=== PATIENT | female | born 2000 | race Asian ===

== ENCOUNTER 2018-01-01 13:05 | Inpatient (IN) | payer OTHER ==
[2018-01-01] MEDS ORDERED: Ondansetron INJ* 2 MG/ML VIAL IV ONE (13:32)
[2018-01-01] MEDS ORDERED: Ketorolac INJ* 30 MG/ML 1 ML VIAL IV ONE (13:32)
[2018-01-01] MEDS ORDERED: cefTRIAXone(*) 1 GM in NS 0.9% 50 ML* 50 ML IVPB ONE (13:36)
[2018-01-01] MEDS ORDERED: Azithromycin IV(*) 500 MG in NS 0.9% 250 ML* 250 ML IVPB ONE (13:36)
[2018-01-01] MEDS: NS 0.9% 1000 ML* 2,000 ML IV ONE (14:11)
[2018-01-01 14:17] LABS: Hematocrit 31 % (35-47); Hemoglobin 10.7 g/dl (12.0-16.0); Mean Corpuscular HGB Conc 34 g/dl (31-36); Mean Corpuscular Hemoglobin 30 pg (27-31); Mean Corpuscular Volume 88 fL (80-97); Mean Platelet Volume 7.9 um3 (7.4-10.4); Platelet Count 278 10^3/ul (150-450); Red Blood Count 3.52 10^6/ul (4.0-5.4); Red Cell Distribution Width 12 % (10.5-15); White Blood Count 20.9 10^3/ul (3.5-10.8)
[2018-01-01 14:25] LABS: INR 1.23 (0.77-1.02)
[2018-01-01 14:34] LABS: EGFR Non-African American 126.4 (>60)
[2018-01-01] MEDS ORDERED: cefTRIAXone 1000 MG SYRINGE IVPB ONCE (in NaCl) IVPB ONE ×2 (15:00)
[2018-01-01] MEDS ORDERED: CEFTRIAXONE 1000 MG IVPB ONE ×2 (15:00)
[2018-01-01] MEDS ORDERED: Iohexol 350* (CONTRAST) 500 ML MDV IV ONE (15:17)
[2018-01-01 15:20] LABS: ABS Basophils 0.1 10^3/ul (0-0.2); ABS Eosinophils 0 10^3/ul (0-0.6); ABS Lymphocytes 1.6 10^3/ul (1.0-4.8); ABS Monocytes 1.7 10^3/ul (0-0.8); ABS Neutrophils 17.5 10^3/ul (1.5-7.7); ABS Nucleated RBC 0 10^3/ul; Eosinophil % 0.1 % (0-6); Lymphocyte % 7.7 % (25-47); Nucleated Red Blood Cells % 0
--- NOTE | 2018-01-01 16:58 | RAD ---
INDICATION: Right-sided chest pain with a positive d-dimer COMPARISON: None TECHNIQUE: Axial source images were acquired following the administration of 59 mL Omnipaque [address] angiographic technique. Coronal and sagittal reconstructed images were constructed and reviewed. FINDINGS: There there are no filling defects in the pulmonary arteries to indicate acute pulmonary embolic disease. Involving most of the right lower lobe there is a mass abutting the posterior pleura measuring 6.9 x 8.9 cm in the axial plane and up to 8.3 cm in sagittal projection. There are foci of air within this mass in the center. The remaining lungs are grossly clear. The heart is normal in size. There is no evidence of pericardial effusion. There is no evidence of aortic aneurysm or dissection. There is no mediastinal, hilar, or axillary lymphadenopathy. The visualized osseous structures appear normal. Limited views of the upper abdomen show no abnormalities. IMPRESSION: 1. No CT of evidence of pulmonary embolism. 2. CT findings are consistent with partially cavitary large pneumonia involving the right lower lobe.
--- NOTE | 2018-01-01 17:49 | ED ---
Sayda Thorpe Thomas, scribed for John Gonzalez MD on 01/01/18 at 1328 . HPI Febrile Illness - HPI Summary HPI Summary: The patient is a 17 year old female sent from [facility] urgent care complaining of a cough with yellow production for the last three weeks. She is febrile. The patient also complains of body aches, posterior neck pain, headache (7/10), nausea, dizziness, ear pain, and sore throat. She has right-sided chest pain when she takes deep breaths. She complains of mild abdominal pain. The patient denies vomiting and diarrhea. - History of Current Complaint Chief Complaint: EDGeneral Time Seen by Provider: 01/01/18 13:14 Hx Obtained From: Patient Onset/Duration: Started Weeks Ago - 3, Still Present Timing: Constant Temperature: 100.4 F Current Severity: Moderate Pain Intensity: 6 Pain Scale Used: 0-10 Numeric Aggravating Factors: Nothing Alleviating Factors: Nothing Associated Signs and Symptoms: Other: - Cough, fever, body aches, posterior neck pain, headache (7/10), nausea, dizziness, ear pain, and sore throat, chest pain, mild abd pain; NEGATIVE: vomiting and diarrhea. - Allergy/Home Medications Allergies/Adverse Reactions: Allergies Allergy/AdvReac Type Severity Reaction Status Date / Time No Known Allergies Allergy Verified 01/01/18 13:11 Home Medications: Home Medications Norgestrel/Ethinyl Estrad TAB* [Ogestrel TAB 0.5/0.05*] 1 tab PO DAILY 01/01/18 [History Confirmed 01/01/18] PMH/Surg Hx/FS Hx/Imm Hx Endocrine/Hematology History: Denies: Hx Diabetes Musculoskeletal History: Denies: Hx Scoliosis Infectious Disease History: No Infectious Disease History: Denies: Traveled Outside the [place] in Last 30 Days - Family History Known Family History: Negative: Blood Disorder - Social History Alcohol Use: Weekly Alcohol Amount: 3-4 times a week Substance Use Type: Reports: None Smoking Status (MU): Never Smoked Tobacco Review of Systems Positive: Fever Positive: Sore Throat, Ear Ache Positive: Chest Pain Positive: Cough Positive: Abdominal Pain - mild, Nausea. Negative: Vomiting, Diarrhea Positive: Myalgia, Other - Neck pain Neurological: Other - Dizziness Positive: Headache All Other Systems Reviewed And Are Negative: Yes Physical Exam - Summary Physical Exam Summary: General: well-appearing, no pain distress Skin: warm, color reflects adequate perfusion, dry Head: normal Eyes: EOMI, DAMEON ENT: oral mucosa dry. Positive anterior cervical lymphadenopathy. Neck: supple, nontender Respiratory: CTA, breath sounds present Cardiovascular: Tachycardia, regular rhythm Abdomen: soft, nontender Bowel: present Musculoskeletal: normal, strength/ROM intact Neurological: normal, sensory/motor intact, A&O x3 Psychological: affect/mood appropriate Triage Information Reviewed: Yes Vital Signs On Initial Exam: Initial Vitals Temp Pulse Resp BP Pulse Ox 100.4 F 114 20 143/119 97 01/01/18 13:09 01/01/18 13:09 01/01/18 13:09 01/01/18 13:09 01/01/18 13:09 Vital Signs Reviewed: Yes Diagnostics - Vital Signs Vital Signs Temp Pulse Resp BP Pulse Ox 01/01/18 13:09 100.4 F 114 20 143/119 97 - Laboratory Lab Results: Lab Results 01/01/18 01/01/18 01/01/18 Range/Units 14:06 14:06 14:06 WBC 20.9 H (3.5-10.8) 10^3/ul RBC 3.52 L (4.0-5.4) 10^6/ul Hgb 10.7 L (12.0-16.0) g/dl Hct 31 L (35-47) % MCV 88 (80-97) fL MCH 30 (27-31) pg MCHC 34 (31-36) g/dl RDW 12 (10.5-15) % Plt Count 278 (150-450) 10^3/ul MPV 7.9 (7.4-10.4) um3 Neut % (Auto) 83.8 H (38-83) % Lymph % (Auto) 7.7 L (25-47) % [place] % (Auto) 8.1 H (0-7) % Eos % (Auto) 0.1 (0-6) % Baso % (Auto) 0.3 (0-2) % Absolute Neuts (auto) 17.5 H (1.5-7.7) 10^3/ul Absolute Lymphs (auto) 1.6 (1.0-4.8) 10^3/ul Absolute Monos (auto) 1.7 H (0-0.8) 10^3/ul Absolute Eos (auto) 0 (0-0.6) 10^3/ul Absolute Basos (auto) 0.1 (0-0.2) 10^3/ul Absolute Nucleated RBC 0 10^3/ul Nucleated RBC % 0 INR (Anticoag Therapy) 1.23 H (0.77-1.02) APTT 44.1 H (26.0-36.3) seconds D-Dimer, Quantitative 962 H (Less Than 230) ng/mL Sodium 131 L (133-145) mmol/L Potassium 2.7 L* (3.5-5.0) mmol/L Chloride 95 L (101-111) mmol/L Carbon Dioxide 24 (22-32) mmol/L Anion Gap 12 H (2-11) mmol/L BUN 4 L (6-24) mg/dL Creatinine 0.61 (0.51-0.95) mg/dL Est GFR ( Amer) 162.5 (>60) Est GFR (Non-Af Amer) 126.4 (>60) BUN/Creatinine Ratio 6.6 L (8-20) Glucose 113 H (70-100) mg/dL Lactic Acid (0.5-2.0) mmol/L Calcium 8.5 L (8.6-10.3) mg/dL Total Bilirubin 0.60 (0.2-1.0) mg/dL AST 10 L (13-39) U/L ALT 8 (7-52) U/L Alkaline Phosphatase 67 (34-104) U/L Troponin I 0.03 (<0.04) ng/mL C-Reactive Protein 360.46 H (< 5.00) mg/L Total Protein 6.6 (6.4-8.9) g/dL Albumin 3.2 (3.2-5.2) g/dL Globulin 3.4 (2-4) g/dL Albumin/Globulin Ratio 0.9 L (1-3) Beta HCG, Quant < 0.60 mIU/mL Influenza A (Rapid) (Negative) Influenza B (Rapid) (Negative) 01/01/18 01/01/18 Range/Units 14:06 14:17 WBC (3.5-10.8) 10^3/ul RBC (4.0-5.4) 10^6/ul Hgb (12.0-16.0) g/dl Hct (35-47) % MCV (80-97) fL MCH (27-31) pg MCHC (31-36) g/dl RDW (10.5-15) % Plt Count (150-450) 10^3/ul MPV (7.4-10.4) um3 Neut % (Auto) (38-83) % Lymph % (Auto) (25-47) % [place] % (Auto) (0-7) % Eos % (Auto) (0-6) % Baso % (Auto) (0-2) % Absolute Neuts (auto) (1.5-7.7) 10^3/ul Absolute Lymphs (auto) (1.0-4.8) 10^3/ul Absolute Monos (auto) (0-0.8) 10^3/ul Absolute Eos (auto) (0-0.6) 10^3/ul Absolute Basos (auto) (0-0.2) 10^3/ul Absolute Nucleated RBC 10^3/ul Nucleated RBC % INR (Anticoag Therapy) (0.77-1.02) APTT (26.0-36.3) seconds D-Dimer, Quantitative (Less Than 230) ng/mL Sodium (133-145) mmol/L Potassium (3.5-5.0) mmol/L Chloride (101-111) mmol/L Carbon Dioxide (22-32) mmol/L Anion Gap (2-11) mmol/L BUN (6-24) mg/dL Creatinine (0.51-0.95) mg/dL Est GFR ( Amer) (>60) Est GFR (Non-Af Amer) (>60) BUN/Creatinine Ratio (8-20) Glucose (70-100) mg/dL Lactic Acid 0.8 (0.5-2.0) mmol/L Calcium (8.6-10.3) mg/dL Total Bilirubin (0.2-1.0) mg/dL AST (13-39) U/L ALT (7-52) U/L Alkaline Phosphatase (34-104) U/L Troponin I (<0.04) ng/mL C-Reactive Protein (< 5.00) mg/L Total Protein (6.4-8.9) g/dL Albumin (3.2-5.2) g/dL Globulin (2-4) g/dL Albumin/Globulin Ratio (1-3) Beta HCG, Quant mIU/mL Influenza A (Rapid) Negative (Negative) Influenza B (Rapid) Negative (Negative) Result Diagrams: 01/01/18 14:06 01/01/18 14:06 Lab Statement: Any lab studies that have been ordered have been reviewed, and results considered in the medical decision making process. - CT CTA Chest CT Interpretation: No Acute Changes - IMPRESSION: 1. No CT of evidence of pulmonary embolism. 2. CT findings are consistent with partially cavitary large pneumonia involving the right lower lobe. Dr. Gonzalez has reviewed this report. CT Interpretation Completed By: Radiologist - EKG 13:52 Cardiac Rate: Tachycardia EKG Rhythm: Sinus Tachycardia - at 100 BPM EKG Interpretation: Borderline T Wave Abnormalities. No Ectopy. Course/Dx - Course Course Of Treatment: Medications reviewed. ADMIT HOSPITALIST. CRITICAL CARE TIME LESS THAN 30 MINUTES. - Diagnoses Provider Diagnoses: Pneumonia - Provider Notifications Discussed Care Of Patient With: Mimi Xiong Time Discussed With Above Provider: 17:44 Instructed by Provider To: Admit As Inpatient Discharge - Sign-Out/Discharge Documenting (check all that apply): Discharge - [facility] HOSPITALIST - Discharge Plan Condition: Stable Disposition: ADMITTED TO [facility] Referrals: No Primary Care Phys,NOPCP [Primary Care Provider] - - Billing Disposition and Condition Condition: STABLE Disposition: [facility] [place] The documentation as recorded by the Sayda peace Thomas accurately reflects the service I personally performed and the decisions made by , John Gonzalez MD.
[2018-01-01] MEDS ORDERED: Potassium Chlor TAB* 20 MEQ TAB.ER PO ONE (18:05)
[2018-01-01] MEDS ORDERED: KCL 10 MEQ/50 ML IVPREMIX* 10 MEQ/50 ML BAG ONE (18:15)
[2018-01-01] MEDS: NS 0.9% 1000 ML* 1,000 ML IV SCH (18:28)
[2018-01-01] MEDS: KCL 10 MEQ/50 ML IVPREMIX* 10 MEQ/50 ML BAG IV SCH ×2 (18:29→21:17)
[2018-01-01] MEDS ORDERED: cefTRIAXone(*) 1 GM in NS 0.9% 50 ML* 50 ML IVPB SCH (19:00)
--- NOTE | 2018-01-01 20:26 | RAD ---
INDICATION: Syncope COMPARISON: None. TECHNIQUE: Contiguous axial sections of the brain were obtained from the skull base to the vertex without contrast. FINDINGS: The ventricles, cisterns and sulci are within normal limits. The tenorio-white matter differentiation is adequately maintained and there is no sulcal effacement. No significant focal abnormality or mass effect is present. There is no evidence for intracranial hemorrhage. No significant focal osseous abnormality is present. The visualized portion of the paranasal sinuses appear clear. The mastoid air cells are well aerated bilaterally. IMPRESSION: Normal CT of the brain.
--- NOTE | 2018-01-01 21:37 | CONS ---
PULMONARY CONSULTATION REPORT: DATE OF CONSULT: 01/01/18 CONSULTATION REQUESTED BY: Hammad Leon NP REASON FOR CONSULT: Evaluation of abnormal CT chest. HISTORY OF PRESENT ILLNESS: The patient is a 17-year-old female with no significant past medical history who presents to the emergency room for evaluation of cough productive of yellow phlegm for the past 3 weeks. The patient denies fevers or chills. The patient reports sick contacts recently. The patient reports body ache, headache, neck pain. The patient also reports nausea, dizziness, ear ache and sore throat. The patient reports chest pain with deep breaths. The patient also reports vague abdominal discomfort. However, denies vomiting or diarrhea. The patient was febrile with a T-max of 100.4 in the emergency room. Further evaluation included chest x-ray and CTA of the chest. I have personally reviewed chest x-ray and CT scan of the chest. The patient noted to have large area of consolidation in the right lower lobe abutting the pleura. The patient also with foci of air within the mass, lesion. The patient also with evidence of cavitation in the mass. No significant mediastinal hilar or axillary lymphadenopathy was noted. No evidence of fillings defects were noted. The patient was admitted for possibility of pneumonia. The patient denies recent travel outside the [place]. The patient is originally from [facility], has traveled back to [facility] earlier this past year. The patient reports history of TB in family with younger brother diagnosed and treated with TB a few years ago. The patient denies recent weight loss or loss of appetite. The patient denies drug abuse. The patient is not smoker. The patient denies night sweats or prolonged fevers. The patient denies IV drug abuse. The patient denies having multiple sex partners or having exposure to HIV. The patient denies hemoptysis. MEDICATIONS: Ogestrel tablets 1 tablet daily. ALLERGIES: No known drug allergies. FAMILY HISTORY: History of TB in brother long time ago, no other illnesses. SOCIAL HISTORY: Occasional alcohol intake 3 to 4 times a week, denies smoking or drug abuse. She is a student in [place] and lives with her roommate. REVIEW OF SYSTEMS: All 14 systems reviewed and as per HPI. PHYSICAL EXAM: The patient is in bed, no apparent distress. HEENT: Pupils equal, reactive to light, mucous membranes dry. Lymphatic system, palpable anterior cervical lymphadenopathy. Neck: Supple. No accessory muscle usage. Respiratory: Clear to auscultation bilaterally. Cardiovascular: Tachycardia. Abdomen: Soft, nontender, nondistended. Bowel sounds present. Musculoskeletal : Normal range of motion. Neurologic: Alert, awake, oriented x3. No focal deficits. Vital Signs: Temperature 100.4, heart rate 96 beats per minute, respiratory rate 99 on room air, blood pressure 110/69. DIAGNOSTIC STUDIES/LAB DATA: WBC count 20.9, hemoglobin 10.7, hematocrit 31, platelet count 278 with left shift. Sodium 131, potassium 2.7, chloride 95, bicarb 24, BUN 4, creatinine 0.6, lactic acid within normal limits. Calcium slightly low at 3.5. LFTs within normal limits. CRP elevated at 360. test is negative. Influenza A and B negative. INR slightly elevated at 1.23. D-dimer at 962. CTA of the chest as described above. IMPRESSION AND RECOMMENDATIONS: 17-year-old female originally from [facility]. Last travel about a year ago with recent sick contact with large consolidating mass in right lower lobe concerning for lung abscess. Patient had cold like symptoms 3 weeks ago, might have had Influenza. Given travel to endemic country with TB in the past and family history of TB, would also need to isolate the patient and rule out active TB. Respiratory isolation, sputum AFB x3. Rocephin and Zithromax for atypical coverage recommended by ID. Might need anaerobic coverage. She drinks ETOH and has passed out 2-3 weeks ago. Also suspect connective tissue disease, will check ANTHONY and ANCA. Thank you for allowing me to participate in care of your patient. Will follow up with you. The above recommendations were discussed with Hammad Leon NP. [id number]/BRENDAN #: [id number] KERRI
[2018-01-01] MEDS ORDERED: metroNIDAZOLE IV 500 MG/100ML* 500 MG/100 ML BAG IVPB SCH (22:00)
--- NOTE | 2018-01-01 22:02 | HP ---
CC: [facility] * HISTORY AND PHYSICAL: DATE OF ADMISSION: 01/01/18 PRIMARY CARE PROVIDER: [facility]. ATTENDING PHYSICIAN WHILE IN THE HOSPITAL: Mimi Xiong DO * (report dictated by Jacklyn Leon NP). CHIEF COMPLAINT: 1. Cough. 2. Not feeling well. 3. Chills. HISTORY OF PRESENT ILLNESS: Mrs. Nelson is a 17-year-old female patient who was previously healthy. She gives no medical history, but she does have a history of 3 weeks of cough starting out 3 weeks ago. She had URI type symptoms. She had a sore throat, runny nose, feeling stuffed up. She thought she had a cold. Unfortunately, it persisted for the last 3 weeks. She has had progressive worsening shortness of breath particularly with exertion. She has not been feeling well. She has been having night sweats. She has been having chills at night particularly. No weight loss and she has not been having any hemoptysis, but she does state that she is from [facility]. She immigrated over here back when she was in elementary school, but she did go a visit [facility] in March. She came in because of the coughing today and it was noted that she had a white count of almost 21,000. In addition to this, it was noted on CT imaging that she had what appeared to be of a cavitary lesion in the right lower lobe of her lung and because of this, we were asked to evaluate for admission. PAST MEDICAL HISTORY: Denied. PAST SURGICAL HISTORY: Denied. HOME MEDICATIONS: Include control 1 tablet p.o. daily. ALLERGIES TO MEDICATIONS: Include no known drug allergies. FAMILY HISTORY: She said both her parents are healthy. There is no reports of cancers, diabetes or heart disease. SOCIAL HISTORY: She does not smoke. She does drink few times a week. She said she lives in college. She is in a college at [employer], studying qualifyor. Recent travel again to [facility] in March. She denies having multiple partners and denies having any IV drug use. REVIEW OF SYSTEMS: There is no documented fever. She admits to having chills. She denied having any significant weight change. There is no double vision. She denies having any ear discharge. She denies having any rhinorrhea. There is no sore throat, no thyroid enlargement. Denies having any chest pain with the exception when she takes a deep breath, it does hurt in the right lower lobe. She had equal diaphragmatic expansion. No nausea or vomiting. There is dyspnea particularly with exertion. No abdominal pain. No dysuria, no frequency, no seizure, no loss of consciousness, no pruritus and no skin ulcerations. Review of 14 systems completed, all others negative. PHYSICAL EXAMINATION GENERAL: At this time, Mrs. Nelson is a 17-year-old female patient. She is sitting on the ED stretcher. She appears to be well nourished and well developed. VITAL SIGNS: Blood pressure 103/60, pulse 96, respirations were 18, O2 saturation is 99% on room air, and her temperature was 100.4. HEENT: Head: Atraumatic, normocephalic. Eyes: EOMs are intact. Sclerae anicteric and not pale. Throat: Oral mucosa appears to be dry. No oropharyngeal erythema. NECK: Supple. LUNGS: Clear on the left side. There were crackles noted on the right side. She had equal diaphragmatic expansion, although crackles are mostly in the right lower base. HEART: Sounds S1 and S2. Regular rate and rhythm. No murmurs, rubs, or gallops. EXTREMITIES: Pulses were 2+ throughout. She is moving all 4 extremities with 5 /5 strength. NEUROLOGIC: She is awake, alert, oriented x3. Tongue midline. Take Out Waiter were equal. No gross focal deficits. SKIN: Intact. DIAGNOSTIC STUDIES/LAB DATA: WBC of 20.9, RBC of 3.52, hemoglobin 10.7, hematocrit of 31. The INR was 1.23, PTT of 44.1. D-dimer was 962. Her sodium was 131, potassium 2.7, chloride of 95, bicarb 24, BUN 4, creatinine 0.61, glucose 113, lactate 0.8, calcium 8.5. Total bili 0.6, AST 10, ALT 8, alk phos 67, troponin 0.03. CRP was 360. Albumin was 3.2. Beta-hCG was negative. Serology was negative for flu. She had a chest CTA, which revealed no CT evidence of pulmonary embolism. CT findings are consistent with partially cavitary large pneumonia involving the right lower lobe. She had an EKG obtained today as well showing a sinus tachycardia greater than 100. No ST elevations or T-wave inversions were noted. Old medical records were reviewed. ASSESSMENT AND PLAN: Mrs. Nelson is a 17-year-old female patient coming into the ED today with complaints of cough, fevers, chills, not feeling well. On evaluation was found to be septic with a pneumonia in the right lower lobe, possible cavitary lesion. We were asked to evaluate for admission. She will be admitted under outpatient status for: 1. Sepsis secondary to pneumonia. At this point, she did get two 2 L of fluid in the ED. Her initial lactic acid was normal. We will continue normal saline at 125 an hour. I did touch base with ID and Pulmonology. There is concern with her recent travel and in fact this looks like a cavitary lesion. I am going to check HIV. We will get AFB smears x3, one now, one in the morning and one tomorrow afternoon or evening. We will also send off one of the sputum cultures for TB, PCR. In addition to this, we will put her on Rocephin and azithromycin per the recommendations of ID. I did touch base with Dr. Lucas who will be evaluating the patient later today who may want to consider bronchoscopy. Again, we will treat with aggressive antibiotics and we will continue to follow. If she does deteriorate, I would have a lower threshold of broadened her antibiotic coverage. She appears to be stable now. She is not tachypneic. She is not tachy-cardic. Her blood pressure is stable. So, I think we can continue to follow her closely. We will be placing the patient on airborne precautions until we could definitively rule out TB. 2. Hypokalemia. Her potassium is 2.7. This is probably secondary to decreased p.o. intake. I am going to go ahead and give her IV potassium and p.o. potassium and repeat in the morning, place her on telemetry to get the potassium over 3. 3. DVT prophylaxis: She is high risk. She is on control. In addition to this, she has also had pneumonia and a series infection. I am going to put her on heparin subcu for the time being and we will continue to follow. 4. Code status: Full code. 5. Fluids, electrolytes, and nutrition. She can have a regular diet. I also discussed the care with respiratory for the AFBs. TIME SPENT: Time spent on this admission was 70 minutes, greater than half the time spent [id number] with the patient obtaining my history and physical, other half of the time spent going over the plan of care with the patient and implementing the plan of care. I did discuss the plan of care with my attending, Dr. Xiong, she is in agreement. JACKLYN LEON, CONTROLS OPERATOR [employer] [id number]/[facility] #: [id number] KERRI
[2018-01-01 22:06] LABS: Urine Appearance Clear; Urine Blood Negative (Negative); Urine Color Yellow; Urine Ketones 1+ (Negative); Urine Protein Negative (Negative); Urine Specific Gravity 1.033 (1.010-1.030); Urine Urobilinogen Negative (Negative)
[2018-01-01] MEDS ORDERED: Ondansetron INJ* 2 MG/ML VIAL IV PRN (22:10)
[2018-01-01] MEDS: guaiFENesin ER TAB 600 MG PO SCH (23:13)
[2018-01-01] MEDS: Acetaminophen TAB* 325 MG PO PRN (23:14)
[2018-01-01] MEDS: Heparin VIAL(*) 5000 UNITS/ML VIAL (FIVE THOUSAND) SUBCUT SCH (23:34)
[2018-01-02] MEDS: NS 0.9% 1000 ML* 1,000 ML IV SCH (02:23)
[2018-01-02 07:09] LABS: ABS Basophils 0.1 10^3/ul (0-0.2); ABS Eosinophils 0.1 10^3/ul (0-0.6); ABS Lymphocytes 1.9 10^3/ul (1.0-4.8); ABS Monocytes 1.1 10^3/ul (0-0.8); ABS Neutrophils 14.5 10^3/ul (1.5-7.7); ABS Nucleated RBC 0 10^3/ul; Eosinophil % 0.4 % (0-6); Hematocrit 34 % (35-47); Hemoglobin 11.7 g/dl (12.0-16.0); Lymphocyte % 10.7 % (25-47); Mean Corpuscular HGB Conc 34 g/dl (31-36); Mean Corpuscular Hemoglobin 31 pg (27-31); Mean Corpuscular Volume 89 fL (80-97); Nucleated Red Blood Cells % 0; Platelet Count 320 10^3/ul (150-450); Red Blood Count 3.85 10^6/ul (4.0-5.4); Red Cell Distribution Width 12 % (10.5-15); White Blood Count 17.7 10^3/ul (3.5-10.8)
[2018-01-02] MEDS: KCL 10 MEQ/50 ML IVPREMIX* 10 MEQ/50 ML BAG IV SCH (07:14)
[2018-01-02 07:19] LABS: INR 1.15 (0.77-1.02)
[2018-01-02] MEDS: Acetaminophen TAB* 325 MG PO PRN ×3 (07:21→21:14)
[2018-01-02] MEDS: guaiFENesin ER TAB 600 MG PO SCH ×2 (07:21→21:14)
[2018-01-02 07:22] LABS: EGFR Non-African American 139.5 (>60)
[2018-01-02] MEDS: Heparin VIAL(*) 5000 UNITS/ML VIAL (FIVE THOUSAND) SUBCUT SCH ×3 (07:29→21:14)
[2018-01-02] MEDS ORDERED: Vancomycin per Pharmacy* NOTE FOLLOW UP PRN (07:38)
[2018-01-02] MEDS ORDERED: PPD test dose* 5 TU/0.1 ML TEST (*USE PPD ORDER SET*) INTRADERM ONE (08:00)
[2018-01-02] MEDS ORDERED: Vancomycin(*) 1,500 MG in NS 0.9% 250 ML* 250 ML IVPB ONE (08:00)
[2018-01-02] MEDS ORDERED: ceFAZolin 1 GM VIAL(*) 1 GM in NS 0.9% 50 ML* 50 ML IVPB SCH (08:00)
[2018-01-02] MEDS ORDERED: Tuberculin PPD* 5 TU/DOSE/0.1 ML INTRADERM ONE (08:00)
[2018-01-02] MEDS ORDERED: metroNIDAZOLE IV 500 MG/100ML* 500 MG/100 ML BAG IVPB SCH (10:00)
--- NOTE | 2018-01-02 11:39 | CONS ---
CONSULTATION REPORT: DATE OF CONSULT: 01/02/18 REQUESTING PHYSICIAN: Hammad Leon NP CONSULTING SERVICE: Infectious Disease. REASON FOR CONSULTATION: Abnormal chest imaging and productive cough. IMPRESSION: A 17-year-old woman from [facility] with no history of positive tuberculosis testing, no history of exposure and from [place] endemic [place], admitted with 3 weeks of cough, initial severe myalgia, fever and weight loss. CT scan shows a large right lower lobe infiltrate with partially cavitary lesion , to me it looks most consistent with a lung abscess. I suspect this most likely postinfluenza pneumonia developed into a lung abscess. Sputum Gram stain shows gram-positive cocci in clusters, gram-negative coccobacilli, gram- negative bacilli, gram-positive bacilli. There are a couple of epithelials present. The differential diagnosis also includes pulmonary tuberculosis. The location of the pulmonary abnormality is a little atypical as is the sheer size and density of the infiltrate, though it could be a primary TB. RECOMMENDATIONS: 1. Stop ceftriaxone, azithromycin, Flagyl. Start vancomycin, goal trough 15 to 20; Ancef 1 g every 8 hours; continue AFB of sputum sampling, 2 more samples. I discussed the case with Hammad Leon NP, and asked that one of the specimens be sent to [facility] for PCR for tuberculosis to improve our sensitivity of the initial testing. We will follow her symptoms here and if she is improving on anti- staphylococcal coverage, then that will also give us some information. 2. Tuberculin skin test. HISTORY OF PRESENT ILLNESS: This is a 17-year-old woman from [facility] admitted with fever, chills, and cough. She was well until about 3 weeks ago. She developed the onset of sore throat, runny nose, severe diffuse myalgia, fever, inability to get out of bed for 2 to 3 days and then had a couple of days of seeming to get better followed by sudden onset of worsening which included productive cough. She also started to develop anorexia, night sweats, fevers, and chills. Those symptoms have progressed for last 2.5 weeks and now she is having rigors as well. Last night she came to the emergency room, her white count was 20,000. A CT scan was done with the findings as noted above. She was febrile to 40 degrees this morning. An acid fast smear shows no AFB, influenza PCR negative. Gram-stain, gram-positive cocci in clusters, gram- negative rods. Urine legionella and pneumococcal antigens negative. She continues to have a productive cough, malaise, headache, decreased appetite. She grew up in [facility], was last there in March. She had a negative tuberculin skin test before she started [employer]. Her brother had tuberculosis when she was a child. She does not ever remember having any positive tuberculosis testing. PAST MEDICAL HISTORY: None. PAST SURGICAL HISTORY: None. MEDICATIONS: 1. control. 2. Ceftriaxone 1 g a day. 3. Flagyl 500 mg IV every 8 hours. 4. Azithromycin 500 mg daily. 5. Tylenol. ALLERGIES: None. FAMILY HISTORY: Brother with tuberculosis as a child. Both parents are healthy. SOCIAL HISTORY: She is a [employer] student in [employer]. She is from [facility] , was last there in March. No recent sick contacts. REVIEW OF SYSTEMS: A 14-point review of systems was negative except as noted above. PHYSICAL EXAM: Vital Signs: Temperature is 39, heart rate 120, respiratory rate 20, blood pressure 130/86, oxygen saturation 96% on room air. In general, she is awake in no distress. Neurologic: She is oriented x3. Follows all commands. Answers all questions. HEENT: There is no conjunctival hemorrhage. Oropharynx without lesions. Neck: Supple without mass. Lymph Nodes: There is no inguinal, axillary, or epitrochlear lymphadenopathy. Heart is tachycardic , regular. No murmur. Lungs have decreased breath sounds at the right base without wheeze or rale. Abdomen: Soft, nontender, nondistended. There are bowel sounds present. Skin: There is no rash or splinter hemorrhages. Musculoskeletal: There is no spine tenderness to palpation, no joint synovitis. LABORATORY DATA: White blood cell count 17, hemoglobin 11.7, platelets 320, 000. Creatinine is 0.5. CRP was 350 yesterday. Urinalysis negative. Influenza PCR negative. Please see impressions and recommendations outlined above. Thank you for asking me to see Ms. Nelson in consultation. [id number]/[facility] #: [id number] [facility]ENTER[facility]
--- NOTE | 2018-01-02 14:17 | PN ---
Subjective Date of Service: 01/02/18 Interval History: Pt is feeling poorly. She states she can not take a deep breath due to a very vigorous cough. She has also been sweating. She has pain under her anterior R lower ribs. Objective Active Medications: Acetaminophen (Tylenol Tab*) 650 mg PO Q6H PRN PRN Reason: PAIN OR FEVER Last Admin: 01/02/18 07:21 Dose: 650 mg Guaifenesin (Mucinex*) 1,200 mg PO BID [facility] Last Admin: 01/02/18 07:21 Dose: 1,200 mg Heparin Sodium (Porcine) (Heparin Vial(*)) 5,000 units SUBCUT Q8HR [facility] Last Admin: 01/02/18 13:23 Dose: 5,000 units Sodium Chloride (Ns 0.9% 1000 Ml*) 1,000 mls @ 125 mls/hr IV PER RATE [facility] Stop: 01/03/18 02:14 Last Admin: 01/02/18 02:23 Dose: 125 mls/hr Cefazolin Sodium 1 gm/ Sodium (Chloride) 50 mls @ 200 mls/hr IVPB Q8H [facility] Stop: 01/02/18 15:59 Last Admin: 01/02/18 08:56 Dose: 200 mls/hr Cefazolin Sodium/Dextrose (Kefzol 1 Gm In Dextrose Duplex (*)) 1 gm in 50 mls @ 200 mls/hr IVPB 0000,0800,1600 [facility] Vancomycin HCl 1,000 mg/ (Sodium Chloride) 250 mls @ 166.667 mls/hr IVPB Q6H [facility] Ondansetron HCl (Zofran Inj*) 4 mg IV Q6H PRN PRN Reason: NAUSEA/VOMITING Pharmacy Consult (Vancomycin Per Pharmacy*) 1 note FOLLOW UP . PRN PRN Reason: PER PROTOCOL Pharmacy Profile Note (Ppd Reading Note*) 1 note .SEE ORDER .ONCE [facility] Stop: 01/05/18 08:59 Pharmacy Profile Note (Vancomycin Trough Check) 1 note FOLLOW UP 1030 ONE Stop: 01/03/18 10:31 Vital Signs - 8 hr 01/02/18 01/02/18 01/02/18 07:04 07:30 11:30 Temperature 102.9 F 98.6 F Pulse Rate 117 94 Respiratory 20 18 18 Rate Blood Pressure 131/86 100/62 (mmHg) O2 Sat by Pulse 96 98 Oximetry Oxygen Devices in Use Now: None Appearance: Young female sitting up in bed, eating strawberries, NAD Eyes: No Scleral Icterus Ears/Nose/Mouth/Throat: Mucous Membranes Moist Respiratory: Symmetrical Chest Expansion and Respiratory Effort, - - RLL crackles Cardiovascular: NL Sounds; No Murmurs; No JVD, No Edema, - - mildly tachycardic but regular Abdominal: - - BS+ soft, ND, mildly tender to palpation in the mid abdomen Extremities: No Clubbing, Cyanosis Skin: No Rash or Ulcers Neurological: Alert and Oriented x 3 Result Diagrams: 01/02/18 06:58 01/02/18 06:58 Additional Lab and Data: Lab Results 01/01/18 01/01/18 01/01/18 Range/Units 14:06 14:06 14:06 WBC 20.9 H (3.5-10.8) 10^3/ul RBC 3.52 L (4.0-5.4) 10^6/ul Hgb 10.7 L (12.0-16.0) g/dl Hct 31 L (35-47) % MCV 88 (80-97) fL MCH 30 (27-31) pg MCHC 34 (31-36) g/dl RDW 12 (10.5-15) % Plt Count 278 (150-450) 10^3/ul MPV 7.9 (7.4-10.4) um3 Neut % (Auto) 83.8 H (38-83) % Lymph % (Auto) 7.7 L (25-47) % [place] % (Auto) 8.1 H (0-7) % Eos % (Auto) 0.1 (0-6) % Baso % (Auto) 0.3 (0-2) % Absolute Neuts (auto) 17.5 H (1.5-7.7) 10^3/ul Absolute Lymphs (auto) 1.6 (1.0-4.8) 10^3/ul Absolute Monos (auto) 1.7 H (0-0.8) 10^3/ul Absolute Eos (auto) 0 (0-0.6) 10^3/ul Absolute Basos (auto) 0.1 (0-0.2) 10^3/ul Absolute Nucleated RBC 0 10^3/ul Nucleated RBC % 0 INR (Anticoag Therapy) 1.23 H (0.77-1.02) APTT 44.1 H (26.0-36.3) seconds D-Dimer, Quantitative 962 H (Less Than 230) ng/mL Sodium 131 L (133-145) mmol/L Potassium 2.7 L* (3.5-5.0) mmol/L Chloride 95 L (101-111) mmol/L Carbon Dioxide 24 (22-32) mmol/L Anion Gap 12 H (2-11) mmol/L BUN 4 L (6-24) mg/dL Creatinine 0.61 (0.51-0.95) mg/dL Est GFR ( Amer) 162.5 (>60) Est GFR (Non-Af Amer) 126.4 (>60) BUN/Creatinine Ratio 6.6 L (8-20) Glucose 113 H (70-100) mg/dL Lactic Acid (0.5-2.0) mmol/L Calcium 8.5 L (8.6-10.3) mg/dL Total Bilirubin 0.60 (0.2-1.0) mg/dL AST 10 L (13-39) U/L ALT 8 (7-52) U/L Alkaline Phosphatase 67 (34-104) U/L Troponin I 0.03 (<0.04) ng/mL C-Reactive Protein 360.46 H (< 5.00) mg/L Total Protein 6.6 (6.4-8.9) g/dL Albumin 3.2 (3.2-5.2) g/dL Globulin 3.4 (2-4) g/dL Albumin/Globulin Ratio 0.9 L (1-3) Beta HCG, Quant < 0.60 mIU/mL Influenza A (Rapid) (Negative) Influenza B (Rapid) (Negative) 01/01/18 01/01/18 Range/Units 14:06 14:17 WBC (3.5-10.8) 10^3/ul RBC (4.0-5.4) 10^6/ul Hgb (12.0-16.0) g/dl Hct (35-47) % MCV (80-97) fL MCH (27-31) pg MCHC (31-36) g/dl RDW (10.5-15) % Plt Count (150-450) 10^3/ul MPV (7.4-10.4) um3 Neut % (Auto) (38-83) % Lymph % (Auto) (25-47) % [place] % (Auto) (0-7) % Eos % (Auto) (0-6) % Baso % (Auto) (0-2) % Absolute Neuts (auto) (1.5-7.7) 10^3/ul Absolute Lymphs (auto) (1.0-4.8) 10^3/ul Absolute Monos (auto) (0-0.8) 10^3/ul Absolute Eos (auto) (0-0.6) 10^3/ul Absolute Basos (auto) (0-0.2) 10^3/ul Absolute Nucleated RBC 10^3/ul Nucleated RBC % INR (Anticoag Therapy) (0.77-1.02) APTT (26.0-36.3) seconds D-Dimer, Quantitative (Less Than 230) ng/mL Sodium (133-145) mmol/L Potassium (3.5-5.0) mmol/L Chloride (101-111) mmol/L Carbon Dioxide (22-32) mmol/L Anion Gap (2-11) mmol/L BUN (6-24) mg/dL Creatinine (0.51-0.95) mg/dL Est GFR ( Amer) (>60) Est GFR (Non-Af Amer) (>60) BUN/Creatinine Ratio (8-20) Glucose (70-100) mg/dL Lactic Acid 0.8 (0.5-2.0) mmol/L Calcium (8.6-10.3) mg/dL Total Bilirubin (0.2-1.0) mg/dL AST (13-39) U/L ALT (7-52) U/L Alkaline Phosphatase (34-104) U/L Troponin I (<0.04) ng/mL C-Reactive Protein (< 5.00) mg/L Total Protein (6.4-8.9) g/dL Albumin (3.2-5.2) g/dL Globulin (2-4) g/dL Albumin/Globulin Ratio (1-3) Beta HCG, Quant mIU/mL Influenza A (Rapid) Negative (Negative) Influenza B (Rapid) Negative (Negative) Microbiology and Other Data: Microbiology 01/02/18 09:06 Acid Fast Bacilli Smear - Final Respiratory 01/01/18 20:30 Acid Fast Bacilli Smear - Final Respiratory 01/01/18 20:30 Gram Stain - Final Sputum 01/01/18 21:40 Legionella Urinary Antigen - Final Urine Negative Legionella Antigen Streptococcus pneumoniae Ag Screen - Final Negative S. pneumo Antigen Assess/Plan/Problems-Billing Miss Nelson is a 17 yo F who has no significant PMHx who presented to the ER with c /o cough x3 weeks and was found to have likely a lung abscess. - Patient Problems (1) Lung abscess Current Visit: Yes Status: Acute Code(s): J85.2 - ABSCESS OF LUNG WITHOUT PNEUMONIA SNOMED Code(s): 63550796 Comment: I question if the patient may have developed a post influenza pneumonia that then developed into a lung abscess. Will continue to work to r/o TB. Continue cefazolin and vancomycin per Dr. Watson. Will likely need assisted IV Abx. Await sputum culture. Monitor fever curve. (2) DVT prophylaxis Current Visit: Yes Status: Acute Code(s): PCJ7331 - SNOMED Code(s): 808041457 Comment: ambulation (3) Full code status Current Visit: Yes Status: Acute Code(s): Z78.9 - OTHER SPECIFIED HEALTH STATUS SNOMED Code(s): 620522266
[2018-01-02] MEDS ORDERED: Azithromycin IV(*) 500 MG in NS 0.9% 250 ML* 250 ML IVPB SCH (15:00)
[2018-01-02] MEDS ORDERED: guaiFENesin LIQ* 100 MG/5 ML UDC PO PRN (15:52)
[2018-01-02] MEDS: ceFAZolin 1 GM in Dextrose (*) 1 GM/50 ML BAG IVPB SCH (15:53)
[2018-01-02] MEDS ORDERED: cefTRIAXone 1000 MG SYRINGE IVPB Q24H (in NaCl) IVPB SCH ×2 (16:00)
[2018-01-02] MEDS: Vancomycin(*) 1,000 MG in NS 0.9% 250 ML* 250 ML IVPB SCH ×2 (16:22→22:48)
--- NOTE | 2018-01-02 16:39 | PN ---
Progress Note - Progress Note Date of Service: 01/02/18 - Pulm f/u note Note: Pt seen and examined at bedside. Pt reports having more cough with productive sputum today, not feeling any better Active Medications Generic Name Dose Route Start Last Admin Trade Name Freq PRN Reason Stop Dose Admin Acetaminophen 650 mg 01/01/18 22:10 01/02/18 15:52 Tylenol Tab* PO 650 mg Q6H PRN Administration PAIN OR FEVER Guaifenesin 10 ml 01/02/18 15:52 01/02/18 16:04 Robitussin* PO 10 ml Q4H PRN Administration COUGH Heparin Sodium (Porcine) 5,000 units 01/01/18 22:00 01/02/18 13:23 Heparin Vial(*) SUBCUT 5,000 units Q8HR [facility] Administration Sodium Chloride 1,000 mls @ 125 mls/hr 01/01/18 18:15 01/02/18 02:23 Ns 0.9% 1000 Ml* IV 01/03/18 02:14 125 mls/hr PER RATE [facility] Administration Cefazolin Sodium/Dextrose 1 gm in 50 mls @ 200 mls/hr 01/02/18 16:00 15:53 Kefzol 1 Gm In Dextrose Duplex (*) IVPB 200 mls/hr 0000,0800,1600 [facility] Administration Vancomycin HCl 1,000 mg/ 250 mls @ 166.667 mls/hr 01/02/18 16:30 01/02/18 16: 22 Sodium Chloride IVPB 166.667 mls/hr Q6H [facility] Administration Ondansetron HCl 4 mg 01/01/18 22:10 Zofran Inj* IV Q6H PRN NAUSEA/VOMITING Pharmacy Consult 1 note 01/02/18 07:38 Vancomycin Per Pharmacy* FOLLOW UP . PRN PER PROTOCOL Pharmacy Profile Note 1 note 01/04/18 09:00 Ppd Reading Note* .SEE ORDER 01/05/18 08:59 .ONCE [facility] Pharmacy Profile Note 1 note 01/03/18 10:30 Vancomycin Trough Check FOLLOW UP 01/03/18 10:31 1030 ONE Vital Signs Temp Pulse Resp BP Pulse Ox 102.9 F 115 18 124/73 100 01/02/18 15:41 01/02/18 15:41 01/02/18 15:41 01/02/18 15:41 01/02/18 15:41 Gen: Pt in NAD HEENT: No Scleral Icterus, mucous membranes moist Respiratory: Good a/e b/l, RLL crackles Cardiovascular: S1, S2+, No JVD, mildly tachycardic Abdominal: BS+, soft, ND, mildly tender to palpation in the mid abdomen Extremities: No clubbing, cyanosis, normal ROM Skin: No Rash or Ulcers Neurological: Alert and Oriented x 3, no focal defecits Laboratory Results - last 24 hr 01/01/18 01/01/18 01/01/18 14:06 18:00 21:40 WBC RBC Hgb Hct MCV MCH MCHC RDW Plt Count MPV Neut % (Auto) Lymph % (Auto) [place] % (Auto) Eos % (Auto) Baso % (Auto) Absolute Neuts (auto) Absolute Lymphs (auto) Absolute Monos (auto) Absolute Eos (auto) Absolute Basos (auto) Absolute Nucleated RBC Nucleated RBC % INR (Anticoag Therapy) Sodium Potassium Chloride Carbon Dioxide Anion Gap BUN Creatinine Est GFR ( Amer) Est GFR (Non-Af Amer) BUN/Creatinine Ratio Glucose Lactic Acid 0.7 Calcium Urine Color Yellow Urine Appearance Clear Urine pH 6.0 Ur Specific [place] 1.033 H Urine Protein Negative Urine Ketones 1+ A Urine Blood Negative Urine Nitrate Negative Urine Bilirubin Negative Urine Urobilinogen Negative Ur Leukocyte Esterase Negative Urine Glucose Negative HIV 1&2 Antibody Nonreactive 01/02/18 01/02/18 01/02/18 06:58 06:58 06:58 WBC 17.7 H RBC 3.85 L Hgb 11.7 L Hct 34 L MCV 89 MCH 31 MCHC 34 RDW 12 Plt Count 320 MPV 8.0 Neut % (Auto) 82.1 Lymph % (Auto) 10.7 L [place] % (Auto) 6.5 Eos % (Auto) 0.4 Baso % (Auto) 0.3 Absolute Neuts (auto) 14.5 H Absolute Lymphs (auto) 1.9 Absolute Monos (auto) 1.1 H Absolute Eos (auto) 0.1 Absolute Basos (auto) 0.1 Absolute Nucleated RBC 0 Nucleated RBC % 0 INR (Anticoag Therapy) 1.15 H Sodium 134 Potassium 4.0 Chloride 102 Carbon Dioxide 20 L Anion Gap 12 H BUN 4 L Creatinine 0.56 Est GFR ( Amer) 179.4 Est GFR (Non-Af Amer) 139.5 BUN/Creatinine Ratio 7.1 L Glucose 83 Lactic Acid Calcium 8.5 L Urine Color Urine Appearance Urine pH Ur Specific [place] Urine Protein Urine Ketones Urine Blood Urine Nitrate Urine Bilirubin Urine Urobilinogen Ur Leukocyte Esterase Urine Glucose HIV 1&2 Antibody I/R: 17 y o f with no signficant PMH, from [facility] a/w 3 week history of gen malaise, SOB, chest discomfort, cough, found to have large Rt lung abscess Pt being covered for Staph and Strep for suspicion of post Influenza bacterial PNA On resp isolation to r/o TB, AFBx2 negative Continues to spike fever Leucocytosis improving PPD placed Resp isolation to be d/zahra when next AFB is negative Will f/u with rpt CXR tomorrow to evaluate for pl effusion
[2018-01-02] MEDS ORDERED: Guaifenesin/Pseudo 600/60(NF) TAB (Mucinex D) PO PRN (20:30)
[2018-01-03] MEDS: ceFAZolin 1 GM in Dextrose (*) 1 GM/50 ML BAG IVPB SCH ×4 (00:18→23:54)
[2018-01-03] MEDS: CMCS: Melatonin (NF) 3 MG TAB PO PRN ×2 (00:41→23:54)
[2018-01-03] MEDS: Acetaminophen TAB* 325 MG PO PRN (03:38)
[2018-01-03] MEDS: Vancomycin(*) 1,000 MG in NS 0.9% 250 ML* 250 ML IVPB SCH (04:23)
[2018-01-03] MEDS: Heparin VIAL(*) 5000 UNITS/ML VIAL (FIVE THOUSAND) SUBCUT SCH ×3 (05:39→21:21)
[2018-01-03 07:34] LABS: Hematocrit 30 % (35-47); Hemoglobin 10.5 g/dl (12.0-16.0); Mean Corpuscular HGB Conc 35 g/dl (31-36); Mean Corpuscular Hemoglobin 30 pg (27-31); Mean Corpuscular Volume 88 fL (80-97); Mean Platelet Volume 7.9 um3 (7.4-10.4); Platelet Count 342 10^3/ul (150-450); Red Blood Count 3.45 10^6/ul (4.0-5.4); Red Cell Distribution Width 12 % (10.5-15); White Blood Count 13.2 10^3/ul (3.5-10.8)
[2018-01-03] MEDS: guaiFENesin ER TAB 600 MG PO SCH ×2 (08:16→21:21)
--- NOTE | 2018-01-03 09:37 | PN ---
Progress Note - Progress Note Date of Service: 01/03/18 SOAP: Subjective: CC: cough HPI: 18 year old woman from [place], all recent TST negative now with 3 weeks cough, fever, sweats. Energy and appetite improved today, no rash or diarrhea. Had fever overnight but no rigors since yesterday. Still productive cough. Objective: Vital Signs Temp 36.8 C 01/03/18 07:48 Pulse 95 01/03/18 07:48 Resp 18 01/03/18 09:25 BP 98/62 01/03/18 07:48 Pulse Ox 98 01/03/18 08:00 Intake & Output 01/02/18 01/03/18 01/03/18 18:59 06:59 18:59 Intake Total 1080 600 Balance 1080 600 Intake: IVPB 600 ABX - CEFAZOLIN 50 ABX - VANCOMYCIN 500 NS (0.9%) 50 Oral 1080 0 Other: Estimated Void Medium # Bowel Movements 0 # Voids 1 Gen:awake, no distress HEENT:no thrush Heart:Regular, tachycardic; no murmur Lungs:Decr BS R base Abd:+BS NTND soft Skin: no rash Laboratory Results - last 24 hr 01/01/18 01/03/18 14:06 07:16 WBC 13.2 H RBC 3.45 L Hgb 10.5 L Hct 30 L MCV 88 MCH 30 MCHC 35 RDW 12 Plt Count 342 MPV 7.9 HIV 1&2 Antibody Nonreactive Microbiology 01/02/18 20:15 Acid Fast Bacilli Smear - Final Respiratory 01/01/18 14:10 Aerobic Blood Culture - Preliminary Blood Venous No Growth Day 1 Anaerobic Blood Culture - Preliminary No Growth Day 1 01/01/18 14:06 Aerobic Blood Culture - Preliminary Blood Venous No Growth Day 1 Anaerobic Blood Culture - Preliminary No Growth Day 1 01/02/18 09:06 Acid Fast Bacilli Smear - Final Respiratory 01/01/18 20:30 Acid Fast Bacilli Smear - Final Respiratory 01/01/18 20:30 Gram Stain - Final Sputum Assessment: 1. cough with large dense right lung infiltrate, some cavitation. Differential includes pyogenic lung abscess, TB, doubt NTM or Nocardia. AFB smear neg x3 so if TB not contagious. MTB PCR pending. Sputum Cx pending. Symptoms and WBC improving suggests pyogenic abscess. 2. fever, due to #1 3. leukocytosis, due to #1, improving Plan: 1. continue vanco goal tr 15-20 and ancef 1 gm IV Q8hrs; checked w micro they are still working on bacterial sputum culture. Discussed with Dr Marshall 35 minutes floor time >50% face to face discussing test results and abx plans
[2018-01-03] MEDS ORDERED: Vancomycin Trough Check NOTE FOLLOW UP ONE (10:30)
[2018-01-03 11:55] LABS: Vancomycin Trough 6.8 mcg/mL
[2018-01-03] MEDS ORDERED: Vancomycin 1500 MG IV - x ONCE IVPB ONE ×2 (13:00)
--- NOTE | 2018-01-03 17:32 | PN ---
Subjective Date of Service: 01/03/18 Interval History: Pt is feeling a little better today. She denies any CP. No significant SOB. Her cough has lessened some. She continues to bring up sputum. No diarrhea. Objective Active Medications: Acetaminophen (Tylenol Tab*) 650 mg PO Q6H PRN PRN Reason: PAIN OR FEVER Last Admin: 01/03/18 03:38 Dose: 650 mg Guaifenesin (Mucinex*) 1,200 mg PO BID [facility] Last Admin: 01/03/18 08:16 Dose: 1,200 mg Heparin Sodium (Porcine) (Heparin Vial(*)) 5,000 units SUBCUT Q8HR [facility] Last Admin: 01/03/18 14:37 Dose: 5,000 units Cefazolin Sodium/Dextrose (Kefzol 1 Gm In Dextrose Duplex (*)) 1 gm in 50 mls @ 200 mls/hr IVPB 0000,0800,1600 [facility] Last Admin: 01/03/18 16:49 Dose: 200 mls/hr Vancomycin HCl 1,250 mg/ (Sodium Chloride) 250 mls @ 166.667 mls/hr IVPB Q6H [facility] Melatonin (Melatonin (Nf)) 3 mg PO BEDTIME PRN; Protocol PRN Reason: Sleep Last Admin: 01/03/18 00:41 Dose: 3 mg Ondansetron HCl (Zofran Inj*) 4 mg IV Q6H PRN PRN Reason: NAUSEA/VOMITING Pharmacy Consult (Vancomycin Per Pharmacy*) 1 note FOLLOW UP . PRN PRN Reason: PER PROTOCOL Pharmacy Profile Note (Ppd Reading Note*) 1 note .SEE ORDER .ONCE [facility] Stop: 01/05/18 08:59 Pharmacy Profile Note (Vancomycin Trough Check) 1 note FOLLOW UP .1829 ONE Stop: 01/04/18 18:31 Vital Signs - 8 hr 01/03/18 16:43 Temperature 98.1 F Pulse Rate 102 Respiratory 19 Rate Blood Pressure 113/68 (mmHg) O2 Sat by Pulse 96 Oximetry Oxygen Devices in Use Now: None Appearance: Young female lying in bed, NAD Eyes: No Scleral Icterus Ears/Nose/Mouth/Throat: Mucous Membranes Moist Respiratory: Symmetrical Chest Expansion and Respiratory Effort, - - RLL crackles Cardiovascular: NL Sounds; No Murmurs; No JVD, RRR, No Edema Abdominal: NL Sounds; No Tenderness; No Distention Extremities: No Clubbing, Cyanosis Skin: No Rash or Ulcers, No Nodules or Sclerosis Neurological: Alert and Oriented x 3 Result Diagrams: 01/03/18 07:16 01/02/18 06:58 Additional Lab and Data: Lab Results 01/01/18 01/01/18 01/01/18 Range/Units 14:06 14:06 14:06 WBC 20.9 H (3.5-10.8) 10^3/ul RBC 3.52 L (4.0-5.4) 10^6/ul Hgb 10.7 L (12.0-16.0) g/dl Hct 31 L (35-47) % MCV 88 (80-97) fL MCH 30 (27-31) pg MCHC 34 (31-36) g/dl RDW 12 (10.5-15) % Plt Count 278 (150-450) 10^3/ul MPV 7.9 (7.4-10.4) um3 Neut % (Auto) 83.8 H (38-83) % Lymph % (Auto) 7.7 L (25-47) % [place] % (Auto) 8.1 H (0-7) % Eos % (Auto) 0.1 (0-6) % Baso % (Auto) 0.3 (0-2) % Absolute Neuts (auto) 17.5 H (1.5-7.7) 10^3/ul Absolute Lymphs (auto) 1.6 (1.0-4.8) 10^3/ul Absolute Monos (auto) 1.7 H (0-0.8) 10^3/ul Absolute Eos (auto) 0 (0-0.6) 10^3/ul Absolute Basos (auto) 0.1 (0-0.2) 10^3/ul Absolute Nucleated RBC 0 10^3/ul Nucleated RBC % 0 INR (Anticoag Therapy) 1.23 H (0.77-1.02) APTT 44.1 H (26.0-36.3) seconds D-Dimer, Quantitative 962 H (Less Than 230) ng/mL Sodium 131 L (133-145) mmol/L Potassium 2.7 L* (3.5-5.0) mmol/L Chloride 95 L (101-111) mmol/L Carbon Dioxide 24 (22-32) mmol/L Anion Gap 12 H (2-11) mmol/L BUN 4 L (6-24) mg/dL Creatinine 0.61 (0.51-0.95) mg/dL Est GFR ( Amer) 162.5 (>60) Est GFR (Non-Af Amer) 126.4 (>60) BUN/Creatinine Ratio 6.6 L (8-20) Glucose 113 H (70-100) mg/dL Lactic Acid (0.5-2.0) mmol/L Calcium 8.5 L (8.6-10.3) mg/dL Total Bilirubin 0.60 (0.2-1.0) mg/dL AST 10 L (13-39) U/L ALT 8 (7-52) U/L Alkaline Phosphatase 67 (34-104) U/L Troponin I 0.03 (<0.04) ng/mL C-Reactive Protein 360.46 H (< 5.00) mg/L Total Protein 6.6 (6.4-8.9) g/dL Albumin 3.2 (3.2-5.2) g/dL Globulin 3.4 (2-4) g/dL Albumin/Globulin Ratio 0.9 L (1-3) Beta HCG, Quant < 0.60 mIU/mL Influenza A (Rapid) (Negative) Influenza B (Rapid) (Negative) 01/01/18 01/01/18 Range/Units 14:06 14:17 WBC (3.5-10.8) 10^3/ul RBC (4.0-5.4) 10^6/ul Hgb (12.0-16.0) g/dl Hct (35-47) % MCV (80-97) fL MCH (27-31) pg MCHC (31-36) g/dl RDW (10.5-15) % Plt Count (150-450) 10^3/ul MPV (7.4-10.4) um3 Neut % (Auto) (38-83) % Lymph % (Auto) (25-47) % [place] % (Auto) (0-7) % Eos % (Auto) (0-6) % Baso % (Auto) (0-2) % Absolute Neuts (auto) (1.5-7.7) 10^3/ul Absolute Lymphs (auto) (1.0-4.8) 10^3/ul Absolute Monos (auto) (0-0.8) 10^3/ul Absolute Eos (auto) (0-0.6) 10^3/ul Absolute Basos (auto) (0-0.2) 10^3/ul Absolute Nucleated RBC 10^3/ul Nucleated RBC % INR (Anticoag Therapy) (0.77-1.02) APTT (26.0-36.3) seconds D-Dimer, Quantitative (Less Than 230) ng/mL Sodium (133-145) mmol/L Potassium (3.5-5.0) mmol/L Chloride (101-111) mmol/L Carbon Dioxide (22-32) mmol/L Anion Gap (2-11) mmol/L BUN (6-24) mg/dL Creatinine (0.51-0.95) mg/dL Est GFR ( Amer) (>60) Est GFR (Non-Af Amer) (>60) BUN/Creatinine Ratio (8-20) Glucose (70-100) mg/dL Lactic Acid 0.8 (0.5-2.0) mmol/L Calcium (8.6-10.3) mg/dL Total Bilirubin (0.2-1.0) mg/dL AST (13-39) U/L ALT (7-52) U/L Alkaline Phosphatase (34-104) U/L Troponin I (<0.04) ng/mL C-Reactive Protein (< 5.00) mg/L Total Protein (6.4-8.9) g/dL Albumin (3.2-5.2) g/dL Globulin (2-4) g/dL Albumin/Globulin Ratio (1-3) Beta HCG, Quant mIU/mL Influenza A (Rapid) Negative (Negative) Influenza B (Rapid) Negative (Negative) Microbiology and Other Data: Microbiology 01/02/18 09:06 Acid Fast Bacilli Smear - Final Respiratory 01/01/18 20:30 Acid Fast Bacilli Smear - Final Respiratory 01/01/18 20:30 Gram Stain - Final Sputum 01/01/18 21:40 Legionella Urinary Antigen - Final Urine Negative Legionella Antigen Streptococcus pneumoniae Ag Screen - Final Negative S. pneumo Antigen Assess/Plan/Problems-Billing Miss Nelson is a 17 yo F who has no significant PMHx who presented to the ER with c /o cough x3 weeks and was found to have likely a lung abscess. - Patient Problems (1) Lung abscess Current Visit: Yes Status: Acute Code(s): J85.2 - ABSCESS OF LUNG WITHOUT PNEUMONIA SNOMED Code(s): 13755955 Comment: The patient most likely has a lung abscess. Will continue cefazolin and vancomycin per Dr. Watson. Sputum culture only growing "normal jackie." The patient had a fever early this AM but nothing since. Will likely need hired worker IV Abx. Of note the patient was septic on admission by sepsis 2 criteria ( tachycardia, tachypnea, fever and leukocyotis). (2) DVT prophylaxis Current Visit: Yes Status: Acute Code(s): FRG8672 - SNOMED Code(s): 745645743 Comment: ambulation (3) Full code status Current Visit: Yes Status: Acute Code(s): Z78.9 - OTHER SPECIFIED HEALTH STATUS SNOMED Code(s): 433793322
[2018-01-03] MEDS: VANCOMYCIN 1250 MG IVPB SCH ×2 (18:28)
[2018-01-04] MEDS: VANCOMYCIN 1250 MG IVPB SCH ×4 (01:14→06:15)
[2018-01-04] MEDS: Heparin VIAL(*) 5000 UNITS/ML VIAL (FIVE THOUSAND) SUBCUT SCH (06:15)
[2018-01-04 06:36] LABS: ABS Basophils 0.2 10^3/ul (0-0.2); ABS Eosinophils 0.1 10^3/ul (0-0.6); ABS Lymphocytes 1.6 10^3/ul (1.0-4.8); ABS Monocytes 0.9 10^3/ul (0-0.8); ABS Neutrophils 10.6 10^3/ul (1.5-7.7); ABS Nucleated RBC 0 10^3/ul; Eosinophil % 0.9 % (0-6); Hematocrit 31 % (35-47); Hemoglobin 10.4 g/dl (12.0-16.0); Mean Corpuscular HGB Conc 34 g/dl (31-36); Mean Corpuscular Hemoglobin 30 pg (27-31); Mean Corpuscular Volume 89 fL (80-97); Mean Platelet Volume 8.6 um3 (7.4-10.4); Nucleated Red Blood Cells % 0; Platelet Count 407 10^3/ul (150-450); Red Blood Count 3.46 10^6/ul (4.0-5.4); Red Cell Distribution Width 12 % (10.5-15); White Blood Count 13.4 10^3/ul (3.5-10.8)
[2018-01-04] MEDS: ceFAZolin 1 GM in Dextrose (*) 1 GM/50 ML BAG IVPB SCH (08:38)
[2018-01-04] MEDS: guaiFENesin ER TAB 600 MG PO SCH (08:38)
[2018-01-04 08:42] VITALS: BP 107/64
[2018-01-04] MEDS ORDERED: PPD Reading 48-72 HRS NOTE SCH (09:00)
[2018-01-04] MEDS ORDERED: Vancomycin Trough Check NOTE FOLLOW UP ONE (18:30)
--- NOTE | 2018-01-05 07:29 | DS ---
CC: Dr. Watson; [facility] * DISCHARGE SUMMARY: DATE OF ADMISSION: 01/01/18 DATE OF DISCHARGE: 01/04/18 PRIMARY CARE PROVIDER: [facility]. PRINCIPAL DIAGNOSIS: Right lower lobe lung abscess. SECONDARY DIAGNOSIS: None. MEDICATIONS: 1. Tylenol 650 mg p.o. q.6 hours p.r.n. pain. 2. Linezolid 600 mg p.o. b.i.d. x30 days. 3. Ogestrel 1 tab p.o. daily. HOSPITAL COURSE: Ms. Nelson is a 17-year-old female who presented to the emergency room on 01/01/18 with complaints of cough and sputum production. She had also been complaining of chills. Her illness began approximately 3 weeks prior to admission. She was found to have likely a right lower lobe lung abscess. She was ruled out for infectious TB with 3 negative AFB smears. She was seen in consultation by Dr. Lucas from Pulmonology who agreed with ruling out TB as well as recommending sending ANTHONY and ANCA. These have come back negative. She was then seen in consultation by Dr. Watson who felt that the lung process likely represented pyogenic abscess as opposed to TB given its location and size. The patient produced a sputum; however, this only grew "normal jackie." She has been treated with vancomycin and cefazolin while in the hospital. On 01/04/18, the patient indicated that she wanted to leave against medical advice as she states her parents bought her plane to get home for spring. She states very clearly that she is willing to accept the risk of worsened infection, sepsis and even to leave the hospital against medical advice. I was able to speak with Dr. Watson on the day of discharge who recommended sending her on linezolid 600 mg p.o. twice daily. She has been instructed to go to the nearest emergency room if she suddenly becomes sicker or if she develops any concerning symptoms. Additionally, it has been recommended that she followup upon return home with [facility] and with Dr. Watson. The patient is aware that I am highly recommending that she stay in the hospital for IV antibiotics and ultimately obtain a PICC for IV antibiotics for a prolonged course. She at this time does have capacity to make the decision to leave against medical advice. Of note, the patient is mildly tachycardic and I have explained that I am concerned about this as well. At this point, the patient states that she feels well and regardless of my recommendations, she wants to leave against medical advice. PHYSICAL EXAMINATION: On the day of discharge, the patient is awake, alert and oriented sitting up in bed in acute distress. Her cardiac exam reveals a normal S1, S2 with mildly tachycardic rate. This is regular. She has no murmurs and no edema. Her breath sounds at the right base are diminished, otherwise her lungs are clear. Abdomen is soft, nontender, nondistended. She moves all 4 extremities symmetrically. FOLLOWUP CONCERNS: The patient is being discharged against medical advice today 01/04/18. ACTIVITY LEVEL: As tolerated. DIET: Regular. CONDITION ON DISCHARGE: Guarded. TIME SPENT: Forty-minutes were spent discharging this patient. [id number]/CPS #: [id number] KERRI
== END 2018-01-04 12:00 | disposition home or self-care (01) | DRG 871 ==
LOC: ED 13:05 → MED 19:55
PROVIDERS: ADMIT Internal Medicine; ATTEND Hospitalist
DX: A41.9 Sepsis, unspecified organism (principal); J85.1 Abscess of lung with pneumonia; R10.9 Unspecified abdominal pain; R00.0 Tachycardia, unspecified; E87.6 Hypokalemia; Z72.89 Other problems related to lifestyle
CPT/HCPCS: 36415; 70450; 71275; 80048; 80053; 80202; 81003; 83516; 83605; 84145; 84484; 84702; 85025; 85027; 85379; 85610; 85730; 86038; 86140; 86703; 87040; 87070; 87116; 87205; 87206; 87502; 87556; 87899; 93005; 99284; A9270-GY; J0456; J0690; J0696; J1644; J1885; J2405; J3370; J3480; J3490; Q9967

== ENCOUNTER 2018-01-08 18:17 | Inpatient (IN) | payer OTHER ==
[2018-01-08] MEDS ORDERED: NS 0.9% 1000 ML* 1,000 ML IV ONE ×2 (20:30→22:13)
--- NOTE | 2018-01-08 20:59 | RAD ---
INDICATION: Pneumonia COMPARISON: CTA chest January 01, 2018 TECHNIQUE: An AP portable view obtained at 24 hours is submitted. FINDINGS: Bones/Soft Tissues: There are no acute bony findings. Cardiomediastinal: The cardiomediastinal silhouette is normal. Lungs: There is right-sided infiltrate with cavitary consolidation. There is very Little interval change. The right lung apex and left lung are clear. Pleura: There are no pleural effusions. Other: None IMPRESSION: RIGHT LOWER LOBE INFILTRATE WITH CAVITARY CONSOLIDATION. THERE IS VERY LITTLE INTERVAL CHANGE
[2018-01-08 21:16] LABS: ABS Basophils 0 10^3/ul (0-0.2); ABS Eosinophils 0.1 10^3/ul (0-0.6); ABS Lymphocytes 2.1 10^3/ul (1.0-4.8); ABS Monocytes 0.4 10^3/ul (0-0.8); ABS Neutrophils 5.9 10^3/ul (1.5-7.7); ABS Nucleated RBC 0 10^3/ul; Eosinophil % 1.4 % (0-6); Hematocrit 30 % (35-47); Hemoglobin 10.4 g/dl (12.0-16.0); Lymphocyte % 24.7 % (25-47); Mean Corpuscular HGB Conc 34 g/dl (31-36); Mean Corpuscular Hemoglobin 30 pg (27-31); Mean Corpuscular Volume 89 fL (80-97); Nucleated Red Blood Cells % 0; Platelet Count 699 10^3/ul (150-450); Red Blood Count 3.42 10^6/ul (4.0-5.4); Red Cell Distribution Width 12 % (10.5-15); White Blood Count 8.6 10^3/ul (3.5-10.8)
[2018-01-08 21:20] LABS: INR 1.04 (0.77-1.02)
[2018-01-08 21:31] LABS: EGFR Non-African American 147.1 (>60)
[2018-01-08] MEDS ORDERED: Ondansetron INJ* 2 MG/ML VIAL IV PRN (22:01)
[2018-01-08] MEDS ORDERED: Al Hydrox/Mg Hydrox/Simet LIQ* 30 ML UDC PO PRN (22:01)
[2018-01-08] MEDS ORDERED: Senna TAB PO PRN (22:01)
[2018-01-08] MEDS ORDERED: Acetaminophen TAB* 325 MG PO PRN (22:01)
[2018-01-08] MEDS ORDERED: Docusate CAP* 100 MG PO PRN (22:01)
[2018-01-09] MEDS ORDERED: Vancomycin(*) 1,000 MG in NS 0.9% 250 ML* 250 ML IVPB ONE ×2
--- NOTE | 2018-01-09 00:11 | PN ---
Progress Note - Progress Note Date of Service: 01/09/18 Note: Elevated HCG suggestive for positive - spoke with patient. Repeated to confirm. Repeat was negative . Patient updated that she is not .
--- NOTE | 2018-01-09 02:54 | HP ---
CC: [facility] * HISTORY AND PHYSICAL: DATE OF ADMISSION: 01/08/18 TIME OF EVALUATION: 2200. PRIMARY CARE PROVIDER: [facility]. CHIEF COMPLAINT: Shortness of breath, pleuritic pain with known diagnosis of a lung abscess. HISTORY OF PRESENT ILLNESS: This is a 18-year-old female who was just admitted from the through the diagnosed with a pyogenic lung abscess, was started on IV vancomycin. The plan was to continue her on prolonged IV antibiotics. The patient wanted to leave [place]. Her mother had given her a plane flight ticket to come home, so she was discharged home. Dr. Watson recommended linezolid 600 mg p.o. b.i.d. at the time of discharge. She has been taking the linezolid. She states that she was not able to go on the plane because she was feeling too unwell. She states her shortness of breath is better overall. She is still having her pleuritic pain, which is essentially unchanged. She has been having adequate appetite. No longer having fevers. No nausea or vomiting. No abdominal pain. She has had some diarrhea. No urinary symptoms, no rash. Otherwise reviews of systems is negative. In the emergency room, the patient had labs and imaging and was referred to the hospitalist service for further evaluation. In the emergency room, she was given 1 L of normal saline. PAST MEDICAL HISTORY: Diagnosed with a right lower lobe lung abscess with negative workup including negative TB as well ANTHONY and ANCA. Her sputum culture final report was normal jackie. MEDICATIONS: 1. Linezolid 600 mg p.o. b.i.d. 2. Norgestrel-ethinyl estradiol 1 tab p.o. daily. ALLERGIES: No known drug allergies. FAMILY HISTORY: Her parents are alive and healthy. They are from [place], her mother is flying in tomorrow. SOCIAL HISTORY: The patient is from [place]. 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 She states she uses electronic cigarettes. Occasionally drinks alcohol. She denies any illicit drugs. She is sexually active. Denies using protection. REVIEW OF SYSTEMS: A 14-point review of systems mentioned in HPI, otherwise negative. PHYSICAL EXAMINATION GENERAL: No acute distress, resting comfortably. VITAL SIGNS: Temp 98.6, pulse rate 75, respiratory rate 24, oxygen saturation 97% on room air, blood pressure 97/66. HEENT: Head, normocephalic. Pupils equal and reactive, anicteric. Oropharynx : Mucous membranes are moist. NECK: Supple, no lymphadenopathy. RESPIRATORY: Diminished breath sounds and some faint rhonchi in the right lower lobe. No tachypnea or increased workup of breathing. CARDIAC: Regular rate and rhythm, soft systolic murmur heard throughout. ABDOMEN: Soft, nondistended. Some mild tenderness in the left lower quadrant. EXTREMITIES: No clubbing, cyanosis, or edema. +2 DPs. NEUROLOGIC: Alert and oriented x3. No focal neurologic deficits. DERM: No lesions or rashes. LABORATORY DATA: White count 8.6, hemoglobin 10.4, hematocrit 30, platelets 699. INR is 1.04, sodium 137, potassium 3.7, chloride 101, bicarb 28, BUN 8, creatinine 0.53, glucose 114. AST is 48, ALT is 96, CRP is 89. Urinalysis shows specific gravity of 1.033. RADIOGRAPHIC DATA: Chest x-ray: Right lower lobe infiltrate with cavitary consolidation. There is very little interval change. EKG shows normal sinus rhythm. ASSESSMENT AND PLAN: This is a 18-year-old female with recent diagnosis of a lung abscess who left A on the , sent home on linezolid, came back for concern that she needs IV antibiotics. Right lower lobe lung abscess: Assessment: The patient's blood work shows clinical improvement. Symptomatically, she appears overall improving. The chest x- ray shows minimal interval change. This is not unusual in the short duration. I suspect that the linezolid is working; however, we have no Infectious Disease coverage this evening to discuss discharge home with ID followup as an outpatient. Plan: We will admit her for observation with IV fluids. We will place her on IV vancomycin and place an ID consult for further recommendation regarding IV versus p.o. management. The patient had HIV test and a thorough workup on her prior admission, this had all been unremarkable. Consult ID. Elevated LFTs New since prior admission. Could be related to Linezolid. As above, hold linezolid and continue vancomycin. Repeat labs in AM CHRONIC MEDICAL PROBLEMS: 1. The patient is on control, we will resume that. 2. FEN: Placed her on IV fluids and regular diet. 3. DVT prophylaxis: The patient's scores 0, we will encourage ambulation. 4. Code status: Full code. PATIENT TIME: Greater than 45 minutes were spent doing history and physical, more than half time spent in direct patient contact. [id number]/CPS #: [id number] MTDD
[2018-01-09] MEDS ORDERED: Vancomycin per Pharmacy* NOTE FOLLOW UP PRN (04:40)
--- NOTE | 2018-01-09 05:04 | ED ---
[facility] Tecj[facility] scribchaparro for Shaun Hernández MD on 01/08/18 at 2027 . HPI Cardiac - HPI Summary HPI Summary: This patient is a 18 year old presenting to [facility] with a chief complaint of cough since approx. 5 days ago. Patient was seen in the ED and was admitted for lung abscess and pneumonia. Patient left AMA because she wished to fly home, but states that she was not in the condition to fly home. Patient states that she is feeling a little better currently, but whenever she breathes in, she still feels pain in her lungs. The pain is rated 6/10 in severity. Symptoms aggravated by nothing. Symptoms alleviated by nothing. Patient additionally reports fever, chills, decreased appetite. Patient denies vomiting - History of Current Complaint Chief Complaint: EDGeneral Stated Complaint: COUGH/FEVER Time Seen by Provider: 01/08/18 20:08 Hx Obtained From: Patient Onset/Duration: Started Days Ago, Still Present Timing: Constant Current Severity: Moderate Pain Intensity: 6 Pain Scale Used: 0-10 Numeric Chest Pain Location: Diffuse Aggravating Factor(s): Nothing Alleviating Factor(s): Nothing Associated Signs and Symptoms: Positive: Negative - vomiting, Other: - fever, chills, decreased appetite - Additional Pertinent History Primary Care Physician: [id number] - Allergy/Home Medications Allergies/Adverse Reactions: Allergies Allergy/AdvReac Type Severity Reaction Status Date / Time No Known Allergies Allergy Verified 01/08/18 19:58 PMH/Surg Hx/FS Hx/Imm Hx Previously Healthy: Yes Endocrine/Hematology History: Denies: Hx Diabetes Cardiovascular History: Denies: Hx Hypertension Respiratory History: Reports: Hx Asthma History: Reports: Other Problems/Disorders - one UTI, 4 years ago Denies: Hx Renal Disease Musculoskeletal History: Denies: Hx Scoliosis Sensory History: Reports: Hx Contacts or Glasses Denies: Hx Hearing Aid Opthamlomology History: Reports: Hx Contacts or Glasses EENT History: Denies: Hx Deafness Infectious Disease History: No Infectious Disease History: Denies: Traveled Outside the [place] in Last 30 Days - Family History Known Family History: Negative: Blood Disorder - Social History Occupation: Student Alcohol Use: Weekly Alcohol Amount: 3-4 times a week Hx Substance Use: No Substance Use Type: Reports: None Hx Tobacco Use: No Smoking Status (MU): Never Smoked Tobacco Review of Systems Positive: Fever, Chills, Other - decreased appetite Positive: Chest Pain Positive: Cough Negative: Vomiting All Other Systems Reviewed And Are Negative: Yes Physical Exam - Summary Physical Exam Summary: VITAL SIGNS: Reviewed. GENERAL: Patient is a well-developed and nourished (MALE OR FEMALE) who is lying comfortable in the stretcher. Patient is not in any acute respiratory distress. HEAD AND FACE: No signs of trauma. No ecchymosis, hematomas or skull depressions. No sinus tenderness. EYES: PERRLA, EOMI x 2, No injected conjunctiva, no nystagmus. EARS: Hearing grossly intact. Ear canals and tympanic membranes are within normal limits. MOUTH: Oropharynx within normal limits. NECK: Supple, trachea is midline, no adenopathy, no JVD, no carotid bruit, no c- spine tenderness, neck with full ROM. CHEST: Symmetric, no tenderness at palpation LUNGS: Decreased breath sounds bilaterally. CVS: Regular rate and rhythm, S1 and S2 present, no murmurs or gallops appreciated. ABDOMEN: Soft, non-tender. No signs of distention. No rebound no guarding, and no masses palpated. Bowel sounds are normal. EXTREMITIES: FROM in all major joints, no edema, no cyanosis or clubbing. NEURO: Alert and oriented x 3. No acute neurological deficits. Speech is normal and follows commands. SKIN: Dry and warm Triage Information Reviewed: Yes Vital Signs On Initial Exam: Initial Vitals Temp Pulse Resp BP Pulse Ox 98.6 F 94 24 128/88 96 01/08/18 18:20 01/08/18 18:20 01/08/18 18:20 01/08/18 18:20 01/08/18 18:20 Vital Signs Reviewed: Yes Diagnostics - Vital Signs Vital Signs Temp Pulse Resp BP Pulse Ox 01/08/18 18:20 98.6 F 94 24 128/88 96 - Laboratory Result Diagrams: 01/08/18 20:55 01/08/18 20:55 Lab Statement: Any lab studies that have been ordered have been reviewed, and results considered in the medical decision making process. - Radiology CXR Xray Interpretation: Positive (See Comments) - CXR reveals, per radiologist, IMPRESSION: RIGHT LOWER LOBE INFILTRATE WITH CAVITARY CONSOLIDATION. THERE IS VERY LITTLE INTERVAL CHANGE. ED physician has reviewed this radiology report. Radiology Interpretation Completed By: Radiologist - EKG 2036 Cardiac Rate: NL EKG Rhythm: Sinus Rhythm - 70 BPM EKG Interpretation: NSR (70 BPM), Normal axis. Normal interval. No ischemic changes. Disposition - Course Course Of Treatment: This patient is a 18 year old presenting to [facility] with a chief complaint of cough since approx. 5 days ago. Patient was seen in the ED and was admitted for lung abscess and pneumonia. Patient left AMA because she wished to fly home, but states that she was not in the condition to fly home. An EKG, taken 2036, reveals NSR (70 BPM), Normal axis. Normal interval. No ischemic changes. CXR reveals, per radiologist, IMPRESSION: RIGHT LOWER LOBE INFILTRATE WITH CAVITARY CONSOLIDATION. THERE IS VERY LITTLE INTERVAL CHANGE. ED physician has reviewed this radiology report. Bloodwork Obtained. Urinalysis Obtained. We discussed patient care with Dr. Norman (Hospitalist) at 2030 and they agreed to admit the patient. Patient will be admitted with a dx of lung abscess. The patient is agreeable with this plan. - Diagnoses Provider Diagnoses: Lung abscess - Physician Notifications Discussed Care Of Patient With: Debby Norman - Hospitalist Time Discussed With Above Provider: 09:31 Instructed by Provider To: Admit As Inpatient Discharge - Sign-Out/Discharge Documenting (check all that apply): Discharge - ADMITTED - Discharge Plan Condition: Stable Disposition: ADMITTED TO [facility] Referrals: No Primary Care Phys,NOPCP [Primary Care Provider] - The documentation as recorded by the [facility] Tecjoon accurately reflects the service I personally performed and the decisions made by , Shaun Hernández MD.
[2018-01-09] MEDS: Vancomycin(*) 1,250 MG in NS 0.9% 250 ML* 250 ML IVPB SCH ×3 (06:24→19:47)
[2018-01-09 06:44] LABS: EGFR Non-African American 173.2 (>60)
[2018-01-09] MEDS: Norgestrel/Ethinyl Estrad TAB* 0.5 MG/0.05 MG PO SCH ×2 (08:27→12:00)
[2018-01-09] MEDS ORDERED: Prenatal Vitamin TAB PO SCH (09:00)
[2018-01-09] MEDS ORDERED: Vancomycin Trough Check NOTE FOLLOW UP ONE (17:30)
--- NOTE | 2018-01-09 17:38 | PN ---
Subjective Date of Service: 01/09/18 Interval History: HOSPITALIST PROGRESS NOTE Patient seen and examined at bedside. She feels better today, with less cough. Pleuritic pain is still present but less intense. Family History: Unchanged from Admission Social History: Unchanged from Admission Past Medical History: Unchanged from Admission Objective Active Medications: Acetaminophen (Tylenol Tab*) 650 mg PO Q4H PRN PRN Reason: FEVER/PAIN Al Hydrox/Mg Hydrox/Simethicone (Maalox Plus*) 30 ml PO Q6H PRN PRN Reason: INDIGESTION Docusate Sodium (Colace Cap*) 100 mg PO BID PRN PRN Reason: CONSTIPATION Ethinyl Estradiol/Norgestrel (Ogestrel Tab 0.5/0.05*) 1 tab PO DAILY [facility] Last Admin: 01/09/18 12:00 Dose: Not Given Vancomycin HCl 1,250 mg/ (Sodium Chloride) 250 mls @ 166.667 mls/hr IVPB Q6H [facility] Last Admin: 01/09/18 11:56 Dose: 166.667 mls/hr Ondansetron HCl (Zofran Inj*) 4 mg IV Q4H PRN PRN Reason: NAUSEA/VOMITING Pharmacy Consult (Vancomycin Per Pharmacy*) 1 note FOLLOW UP . PRN PRN Reason: PER PROTOCOL Senna (Senokot Tab*) 1 tab PO BID PRN PRN Reason: CONSTIPATION Selected Entries 01/09/18 11:55 Temperature 98.6 F Pulse Rate 84 Respiratory 18 Rate Blood Pressure 110/64 (mmHg) O2 Sat by Pulse 96 Oximetry Oxygen Devices in Use Now: None Appearance: Young lady lying in bed in [facility]. Eyes: No Scleral Icterus Ears/Nose/Mouth/Throat: Mucous Membranes Moist Neck: Trachea Midline Respiratory: Symmetrical Chest Expansion and Respiratory Effort, - - BS+ bilaterally, rhonchi on the right Cardiovascular: RRR - Normal S1 and S2 Neurological: Alert and Oriented x 3 Result Diagrams: 01/08/18 20:55 01/09/18 05:49 Assess/Plan/Problems-Billing Assessment: Ms. Nelson is a 18yo F with recent admission for RLL abscess, left AMA, and returns with worsening symptoms. - Patient Problems (1) Lung abscess Comment: - Continue Vancomycin for now. Suspect her LFT elevation is secondary to Linezolide. - ID consult requested - Dr. Magana looking in to options for terminal operator antibiotics as outpatient. (2) DVT prophylaxis Comment: - Encourage ambulation (3) Full code status Status and Disposition: Change to in patient for treatment of lung abscess.
--- NOTE | 2018-01-09 22:14 | CONS ---
CONSULTATION REPORT: DATE OF CONSULT: 01/09/18 REQUESTING PHYSICIAN: Dr. Norman CONSULTING SERVICE: Infectious Disease. REASON FOR CONSULT: Lung abscess. IMPRESSION: 1. Recent admission with cough, fever, chest pain, malaise, found to have a right middle lobe lung abscess on a chest CT. She was here on vancomycin and ceftriaxone, left against medical advice, was discharged on linezolid, comes back now because she and her mom decided they wanted her to have IV antibiotics. She feels much better. Her only remaining symptom is right-sided chest pain, which is worse with a deep breath. Her white count is down to 8. Her CRP is down to 90 from 360 on initial presentation. Chest x-ray is stable. My preferences that she have IV antibiotics for at least another 2 weeks before switching to antibiotic pills given the sheer size of this abscess. She is willing to have IV, but unwilling to go home with a PICC line. Her options include trying to get approval for dalbavancin, which we will try now, could use a combination of that and Levaquin as an outpatient. It would prevent a need for a PICC line, but would provide IV coverage. 2. Transaminitis due to linezolid. It is improving since she stopped it, was asymptomatic, but I prefer not to retry linezolid or tedizolid because of that. HISTORY OF PRESENT ILLNESS: This is a 18-year-old woman, recent admission for lung abscess who left last after few days of IV antibiotics with some improvement. She left on linezolid, is back now with her mom, interested in IV antibiotics. She was admitted overnight. CRP is improved. Her energy, appetite, and cough are all better. Fevers gone. The only remaining symptom is right-sided pleuritic chest pain. ALT was 96. When she left here it was 8, down to 72 today since stopping the linezolid. She refuses a PICC line as she cannot bear the thought of the catheter in her arm. Her mom agrees with that. PAST MEDICAL HISTORY: None. ALLERGIES: No known drug allergies. MEDICATIONS: 1. Tylenol. 2. Docusate. 3. control pills. 4. Senna. 5. Vancomycin 1250 mg every 6 hours. 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 No history of TB exposure other than a brother with a latent tuberculosis. She had a negative tuberculin skin test last admission here. FAMILY HISTORY: No tuberculosis. Parents are both healthy. REVIEW OF SYSTEMS: A 14-point review of systems all negative except as noted above. PHYSICAL EXAM: Vital Signs: Temperature 37, heart rate 84, respiratory rate 18 , blood pressure 110/64, oxygen saturation 96% on room air. In general, she is awake, not in distress. Neurologic: She is oriented x3. Follows all commands. HEENT: There is no conjunctival hemorrhage. Oropharynx is without lesions. Neck is supple without mass. Lymph Nodes: There is no inguinal, axillary or epitrochlear lymphadenopathy. Heart: Regular rate and rhythm without murmurs, rubs or gallops. Pulmonary: There are decreased breath sounds in the right mid lung arriola with egophony without wheezes or rales. Abdomen: Soft, nontender, nondistended. There are bowel sounds present. Skin : There are no rashes or splinter hemorrhages. Musculoskeletal: There is no spine tenderness to palpation. DIAGNOSTIC STUDIES/LAB DATA: Creatinine 0.4, AST 28, ALT 72, white blood cell count 8, hemoglobin 10, and platelets 699. IMPRESSION: Please see impression and recommendations as outlined above, which I have discussed with Dr. Patel. TIME SEEN: 60 minutes were spent [id number] with the patient and her mother, greater than 50% in discussion regarding antibiotic plans after she leaves the hospital. [id number]/CPS #: [id number] MTDD
[2018-01-10] MEDS: Vancomycin(*) 1,250 MG in NS 0.9% 250 ML* 250 ML IVPB SCH ×3 (01:25→11:38)
[2018-01-10] MEDS ORDERED: GuaiFENesin DM* 5 ML UDC PO PRN (03:11)
[2018-01-10] MEDS ORDERED: guaiFENesin LIQ* 100 MG/5 ML UDC ONE (03:14)
[2018-01-10] MEDS: Norgestrel/Ethinyl Estrad TAB* 0.5 MG/0.05 MG PO SCH (07:19)
--- NOTE | 2018-01-10 09:14 | PN ---
Progress Note - Progress Note Date of Service: 01/10/18 SOAP: Subjective: CC: lung abscess HPI: 18 year old woman with right lung abscess, on vancomycin and tolerating it well. She had cough overnight, pleuritic right chest pain. No fever, rash, or diarrhea. Objective: Vital Signs Temp 36.6 C 01/10/18 07:50 Pulse 65 01/10/18 07:50 Resp 16 01/10/18 07:50 BP 109/69 01/10/18 07:50 Pulse Ox 99 01/10/18 07:50 Intake & Output 01/09/18 01/10/18 01/10/18 18:59 06:59 18:59 Intake Total 120 650 Balance 120 650 Intake: IV Fluids 50 NS (0.9%) 50 IVPB 600 ABX - VANCOMYCIN 600 Oral 120 0 Other: Estimated Void Medium # Voids 2 2 Gen:awake, no distress HEENT:PERRL, MMM Heart:RRR no murmur Lungs:decr BS R lung Abd:+BS NTND soft Skin: no rash LN: no palpable LN Laboratory Results - last 24 hr 01/09/18 18:29 Vancomycin Trough 11.4 Assessment: 1. Right lung abscess; likely Staph or Strep; improving Plan: 1. continue vancomycin here; PA for dalbavancin 1500 mg x1 as outpt along with levaquin 500 mg daily 2. FU Chest xray 1 month 25 minutes face to face time >50% discussing antibiotic plans with patient and her mom
[2018-01-10 15:23] VITALS: BP 110/80
--- NOTE | 2018-01-11 11:25 | DS ---
CC: [facility]; Dr. Watson DISCHARGE SUMMARY: DATE OF ADMISSION: 01/08/18 DATE OF DISCHARGE: 01/10/18 INFECTIOUS DISEASE SPECIALIST: Dr. Watson. DISCHARGE DIAGNOSIS: Right lower lobe lung abscess. MEDICATION LIST: 1. Norgestrel-ethinyl estradiol 1 tablet p.o. daily. 2. Dalbavancin 1500 mg IV x1 dose. HOSPITAL COURSE: Ms. Nelson is a 18-year-old female that was admitted to [facility] from 01/01/18 through 12/08 06/26, diagnosed with a pyogenic lung abscess. The patient left AMA during that admission. She was d ischarged on linezolid 600 mg p.o. b.i.d. and although she has been taking the antibiotic, she was no t feeling well. She has shortness of breath and pleuritic pain, so she returned to the emergency [facility] and was admitted for further treatment. Chest x-ray showed a right lower lobe infiltrate with cavi tary consolidation with very little interval change. The patient was seen in consultation by Infecti ous Disease (Dr. Watson) who offered the patient the option of a PICC line to continue treatment wi th vancomycin, but the patient declined that option. Dr. Watson felt that the patient had transami nitis due to linezolid, so he decided to stop it. He recommended treatment with dalbavancin with a c ombination of that with Levaquin as an outpatient. The patient is being discharged home today and she has her antibiotic infusion scheduled for 01/11/18 at 12:20 p.m. at the infusion center. She will continue to follow up with Dr. Watson as davis morrow. DIET: Regular diet. ACTIVITIES: As tolerated. DISPOSITION: To home. STATUS IN THE HOSPITAL: Inpatient. Please keep in mind that this is a summarized version of this patient's hospital stay. If you need more information, please feel free to call me at [phone] or please obtain the full edical records. TIME SPENT: Approximately 45 minutes was spent to complete this discharge. [id number]/[facility] #: [id number]
== END 2018-01-10 16:35 | disposition home or self-care (01) | DRG 179 ==
LOC: ED 18:17 → MED 22:01 → OBSVTOIN 01-09 16:24
PROVIDERS: ADMIT Pediatrics; ATTEND Internal Medicine
DX: J85.2 Abscess of lung without pneumonia (principal); R19.7 Diarrhea, unspecified; F17.290 Nicotine dependence, other tobacco product, uncomplicated; J45.909 Unspecified asthma, uncomplicated; R74.0 Nonspecific elevation of levels of transaminase and lactic acid dehydrogenase [LDH]; T36.8X5A Adverse effect of other systemic antibiotics, initial encounter; Y92.9 Unspecified place or not applicable; Z72.89 Other problems related to lifestyle
CPT/HCPCS: 36415; 71045; 80053; 80202; 83735; 84702; 85025; 85610; 85730; 86140; 93005; 99282; A9270-GY; G0378; J3370

== ENCOUNTER 2018-07-03 00:11 | Emergency (ER) | payer OTHER ==
[2018-07-03] MEDS ORDERED: Famotidine TAB* 20 MG PO ONE (01:49)
[2018-07-03] MEDS ORDERED: predniSONE TAB* 20 MG PO ONE (01:50)
[2018-07-03] MEDS ORDERED: hydrOXYzine HCL TAB* 25 MG PO ONE (01:51)
--- NOTE | 2018-07-03 02:12 | ED ---
Allergic Reaction/Systemic - HPI Summary HPI Summary: This patient is a 18 year old F presenting to [facility] accompanied by another female with a chief complaint of diffuse hives that began 2 days ago but are worse now. The patient rates the pain 0/10 in severity. Symptoms alleviated by Benadryl, pt took 25mg at 2300. Patient reports itching and the feeling of a scratchy throat. Patient denies SOB and trouble breathing. - History of Current Complaint Chief Complaint: EDAllergicReaction Time Seen by Provider: 07/03/18 01:47 Hx Obtained From: Patient Onset/Duration: Started days ago, Still Present, Worse Since Timing: Constant Severity Initially: Mild Severity Currently: Moderate Pain Intensity: 0 Pain Scale Used: 0-10 Numeric Location: Diffuse Character: Hives Alleviating Factor(s): Antihistamines Associated Signs And Symptoms: Negative: Difficulty Breathing, Vomiting - Allergies/Home Medications Allergies/Adverse Reactions: Allergies Allergy/AdvReac Type Severity Reaction Status Date / Time No Known Allergies Allergy Verified 07/03/18 02:08 PMH/Surg Hx/FS Hx/Imm Hx Endocrine/Hematology History: Denies: Hx Diabetes, Hx Anemia, Hx Unexplained Bleeding Cardiovascular History: Denies: Hx Cardiomegaly, Hx Congestive Heart Failure, Hx Hypertension Respiratory History: Reports: Hx Asthma Denies: Hx Chronic Obstructive Pulmonary Disease (COPD), Hx Cystic Fibrosis, Hx Lung Cancer, Hx Pleural Effusion History: Reports: Other Problems/Disorders - one UTI, 4 years ago Denies: Hx Renal Disease Musculoskeletal History: Denies: Hx Scoliosis Sensory History: Reports: Hx Contacts or Glasses Denies: Hx Deafness, Hx Hearing Aid Opthamlomology History: Reports: Hx Contacts or Glasses - Immunization History Immunizations Up to Date: Yes Infectious Disease History: No Infectious Disease History: Denies: Traveled Outside the [place] in Last 30 Days - Family History Known Family History: Negative: Respiratory Disease, Blood Disorder - Social History Occupation: Student Lives: Dormitory/Roommates Alcohol Use: Weekly Alcohol Amount: 3-4 times a week Hx Substance Use: No Substance Use Type: Reports: None Hx Tobacco Use: Yes Smoking Status (MU): Current Some Day Smoker Review of Systems Negative: Fever Negative: Shortness Of Breath Negative: Vomiting Positive: Other - hives All Other Systems Reviewed And Are Negative: Yes Physical Exam - Summary Physical Exam Summary: VITAL SIGNS: Reviewed. GENERAL: Patient is a well-developed and nourished female who is lying comfortable in the stretcher. Patient is not in any acute respiratory distress. HEAD AND FACE: No signs of trauma. No ecchymosis, hematomas or skull depressions. No sinus tenderness. EYES: PERRLA, EOMI x 2, No injected conjunctiva, no nystagmus. EARS: Hearing grossly intact. Ear canals and tympanic membranes are within normal limits. MOUTH: Oropharynx within normal limits. NECK: Supple, trachea is midline, no adenopathy, no JVD, no carotid bruit, no c- spine tenderness, neck with full ROM. CHEST: Symmetric, no tenderness at palpation LUNGS: Clear to auscultation bilaterally. No wheezing or crackles. CVS: Regular rate and rhythm, S1 and S2 present, no murmurs or gallops appreciated. ABDOMEN: Soft, non-tender. No signs of distention. No rebound no guarding, and no masses palpated. Bowel sounds are normal. EXTREMITIES: FROM in all major joints, no edema, no cyanosis or clubbing. NEURO: Alert and oriented x 3. No acute neurological deficits. Speech is normal and follows commands. SKIN: Diffuse macular popular rash that itches Triage Information Reviewed: Yes Vital Signs On Initial Exam: Initial Vitals Temp Pulse Resp BP Pulse Ox 99.1 F 79 15 125/72 98 07/03/18 00:18 07/03/18 00:18 07/03/18 00:18 07/03/18 00:18 07/03/18 00:18 Vital Signs Reviewed: Yes Diagnostics - Vital Signs Vital Signs Temp Pulse Resp BP Pulse Ox 07/03/18 00:18 99.1 F 79 15 125/72 98 - Laboratory Lab Statement: Any lab studies that have been ordered have been reviewed, and results considered in the medical decision making process. Allergic Reaction Course/Dx - Course Assessment/Plan: This patient is a 18 year old F presenting to [facility] accompanied by another female with a chief complaint of diffuse hives that began 2 days ago but are worse now. The patient rates the pain 0/10 in severity. Symptoms alleviated by Benadryl, pt took 25mg at 2300. Patient reports itching and the feeling of a scratchy throat. Patient denies SOB and trouble breathing. Dx allergic reaction. In the ED course the patient was given Pepcid, deltasone, and atarax. These medications alleviated all sx. Patient will be discharged with prescription for deltasone and atarax and follow up from PCP. The patient is agreeable with this plan. - Diagnoses Provider Diagnoses: Allergic reaction Discharge - Sign-Out/Discharge Documenting (check all that apply): Patient Departure - Discharge Plan Condition: Stable Disposition: HOME Prescriptions: hydrOXYzine HCL TAB* [Atarax 25 MG TAB*] 25 mg PO TID PRN #20 tab PRN Reason: Itching predniSONE TAB* [Deltasone TAB*] 50 mg PO DAILY #5 tab Patient Education Materials: Urticaria (ED) Referrals: [facility] [Outside] Additional Instructions: RETURN TO THE EMERGENCY DEPARTMENT FOR CHANGING OR WORSENING SYMPTOMS. FOLLOW UP WITH PCP IN 1-2 DAYS. - Attestation Statements Document Initiated by Scribe: Yes Documenting Scribe: Abrahan Madrid Provider For Whom Scribe is Documenting (Include Credential): Shaun Hernández MD Scribe Attestation: Abrahan Thorpe, scribed for Shaun Hernández MD on 07/03/18 at 0338.
[2018-07-03 03:55] VITALS: BP 121/78
== END 2018-07-03 03:57 | disposition home or self-care (01) ==
LOC: ED 00:11
DX: T78.40XA Allergy, unspecified, initial encounter (principal); F17.200 Nicotine dependence, unspecified, uncomplicated
CPT/HCPCS: 99283; A9270-GY; J7512